=== PATIENT | female | born 1965 | race Caucasian/White ===

== ENCOUNTER 2025-03-10 09:19 | Emergency (ER) | payer OTHER ==
[~2025-03-10] VITALS: Ht 160 cm; Wt 76.7 kg
[2025-03-10 09:19] VITALS: BP 149/64; PULSE 75; RESP 18; TEMP 98.2; O2SAT 91
[2025-03-10 11:09] VITALS: BP 135/72; PULSE 80; RESP 18; O2SAT 99
== END 2025-03-10 11:09 | disposition home or self-care (01) ==
LOC: ER 09:19
DX: S60.211A Contusion of right wrist, initial encounter (principal); E11.9 Type 2 diabetes mellitus without complications; E78.00 Pure hypercholesterolemia, unspecified; Z98.890 Other specified postprocedural states; X58.XXXA Exposure to other specified factors, initial encounter; Y93.89 Activity, other specified; Y92.89 Other specified places as the place of occurrence of the external cause; Y99.8 Other external cause status
CPT/HCPCS: 99283; 73110-RT